=== PATIENT | male | born 1960 | race Caucasian/White ===

== ENCOUNTER 2017-10-11 14:08 | Outpatient (CLI) | payer MEDICARE ==
--- NOTE | 2017-10-11 15:42 | RAD ---
PA AND LATERA OF THE CHEST: INDICATION: History of pneumonia. COMPARISON: Prior radiograph dated 09/19/17 and a CTA examination dated 09/21/17. FINDINGS: There is persistent consolidation within the right lower lobe when compared to the prior examination. No definite pleural effusion is evident. Heart size is unchanged. Osseous structures are unchange d. IMPRESSION: Persistent right lower lobe airspace opacity suspicious for residual infiltrate or mass. Followup CT of the thorax utilizing IV contrast is recommended. POS: MICHAEL
== END 2017-10-11 14:09 | disposition home or self-care (01) ==
LOC: MADRAD 14:08
PROVIDERS: ATTEND Obstetrics & Gynecology
DX: J18.9 Pneumonia, unspecified organism (principal); R19.8 Other specified symptoms and signs involving the digestive system and abdomen
CPT/HCPCS: 71046

== ENCOUNTER 2019-01-27 13:21 | Emergency (ER) | payer MEDICARE ==
[2019-01-27] MEDS ORDERED: Acyclovir 200 mg Capsule ONE (13:44)
[2019-01-27] MEDS ORDERED: predniSONE 20 MG TAB ONE (13:44)
[2019-01-27] MEDS ORDERED: Amoxicillin/Potassium Clav 875 MG TAB ONE (13:45)
[2019-01-27] MEDS ORDERED: Amoxicillin/Potassium Clav 250 mg/5 ml Oral Suspension ONE (13:45)
[2019-01-27] MEDS ORDERED: Naloxone HCl 0.4 mg/ml Vial ONE (16:13)
== END 2019-01-27 14:15 | disposition home or self-care (01) ==
LOC: MADERS 13:21
DX: G51.0 Bell's palsy (principal); H66.93 Otitis media, unspecified, bilateral; E11.9 Type 2 diabetes mellitus without complications; I10 Essential (primary) hypertension; F41.9 Anxiety disorder, unspecified; F32.9 Major depressive disorder, single episode, unspecified; Z79.899 Other long term (current) drug therapy
CPT/HCPCS: 99283; J2310; J7512